=== PATIENT | female | born 1970 | race Caucasian/White ===

== ENCOUNTER 2017-01-15 14:36 | Emergency (ER) | payer OTHER ==
[~2017-01-15] VITALS: Ht 172.7 cm; Wt 72.6 kg
--- NOTE | 2017-01-15 14:39 | NUR ---
PT BIB SELF C/O R WRIST LACERATION x 15 MIN [employer]. CANT REMEMBER LAST TDAP . APPLIED PRESSURE TO LAC. AWAITING MD ORDER
[2017-01-15] MEDS ORDERED: TDAP [DIPH/PERTUSSIS/TET] 0.5 ML VIAL IM STA (14:50)
[2017-01-15] MEDS ORDERED: LIDOCAINE 1%-EPI 1:100,000 50 ML VIAL IJ STA (14:50)
[2017-01-15] MEDS ORDERED: TDAP [DIPH/PERTUSSIS/TET] 0.5 ML VIAL IM ONE (14:56)
[2017-01-15] MEDS ORDERED: BACI/NEOM/POLY B OINT PKT 1 UDPKT PACKET ONE (15:22)
--- NOTE | 2017-01-15 15:30 | NUR ---
Patient discharged to home in stable condition. Written and verbal after care instructions given. Patient verbalizes understanding of instruction.
[2017-01-15 15:33] VITALS: BP 129/89
== END 2017-01-15 15:34 | disposition home or self-care (01) ==
LOC: ER 14:40
DX: S61.511A Laceration without foreign body of right wrist, initial encounter (principal); X58.XXXA Exposure to other specified factors, initial encounter; Y93.89 Activity, other specified; Y92.89 Other specified places as the place of occurrence of the external cause; Y99.8 Other external cause status
CPT/HCPCS: 12001; 90471; 90715; 99283; A4606; A6403; J3490; Z7610